=== PATIENT | male | born 1980 | race Caucasian/White ===

== ENCOUNTER 2018-01-29 14:38 | Emergency (ER) | payer MEDICAID ==
[~2018-01-29] VITALS: Ht 182.9 cm; Wt 101.4 kg
[~2018-01-29 14:38] MED LIST: ANAPROX DS550 MG PO; CIPRO500 MG PO; CLEOCIN HCL300 MG PO; PHENYTOIN SODI100 M3; TEGRETOL XR100 MG PO; TEGRETOL200 MG PO
[2018-01-29] MEDS ORDERED: [UNRECOGNIZED DRUG - REMARK] (14:52)
[2018-01-29] MEDS ORDERED: DEPAKOTE ER500 MG PO (14:53)
[2018-01-29 15:02] LABS: URINE BILIRUBIN NEGATIVE (Negative); URINE BLOOD TRACE (Negative); URINE CLARITY CLEAR; URINE COLOR YELLOW; URINE GLUCOSE-RANDOM NEGATIVE (Negative); URINE KETONES NEGATIVE (Negative); URINE LEUKOCYTES-REFLEX NEGATIVE (Negative); URINE NITRITE-REFLEX NEGATIVE (Negative); URINE PROTEIN TRACE (Negative); URINE SPECIFIC GRAVITY >= 1.030 (1.005-1.030); URINE UROBILINOGEN 0.2 E.U./dl (0.2-1.0)
[2018-01-29 15:08] LABS: HEMATOCRIT 44.6 % (42.0-52.0); HEMOGLOBIN 15.2 gm/dL (14.0-18.0); MCH 29.7 pg (26.0-34.0); MCHC 34.1 g/dL (28.0-37.0); MCV 87.3 fL (80.0-100.0); MPV 8.3 fl. (7.2-11.1); NUCLEATED RBCS 0 /100WBC; PLATELET COUNT* 268 thou/uL (150-400); RBC 5.11 mil/uL (4.50-6.00); RDW-CV 13.5 % (10.5-14.5); WBC 14.1 thou/uL (4.0-11.0)
[2018-01-29 15:10] LABS: AMP/METHAMP Negative (Negative); BARBITURATES Negative (Negative); BENZODIAZEPINES Negative (Negative); COCAINE Negative (Negative); METHADONE Negative (Negative); OPIATES Negative (Negative); PCP Negative (Negative); THC POSITIVE (Negative)
[2018-01-29 15:15] LABS: ANION GAP 10 mmol/L (7-16); BUN 15 mg/dL (7-18); CALCIUM 8.7 mg/dL (8.5-10.1); CHLORIDE 104 mmol/L (98-107); CO2 27 mmol/L (21-32); CREATININE 1.2 mg/dL (0.6-1.3); GLUCOSE 90 mg/dL (70-99); POTASSIUM 4.2 mmol/L (3.5-5.1); SODIUM 141 mmol/L (136-145)
[2018-01-29 15:16] LABS: APTT 25.6 Seconds (25.0-31.3)
[2018-01-29 15:29] LABS: ACETAMINOPHEN < 2 ug/mL (10-30); ALCOHOL < 10 mg/dL (<10); SALICYLATE 3.7 mg/dL (2.8-20.0); VALPROIC ACID (DEPAKENE) < 3.0 mcg/mL (50-100)
[2018-01-29 15:34] LABS: ALBUMIN 3.8 g/dL (3.4-5.0); ALKALINE PHOSPHATASE 83 U/L (46-116); NT-PRO BRAIN NAT PEPTIDE 78 pg/mL (<300); SGOT 21 U/L (15-37); SGPT 30 U/L (30-65); TOTAL BILIRUBIN 0.3 mg/dL (<0.1-1.0); TOTAL PROTEIN 7.3 g/dL (6.4-8.2); TROPONIN-I LEVEL <0.06 ng/mL (<0.06)
[2018-01-29 16:52] LABS: ABSOLUTE LYMPHOCYTES 2.1 thou/uL (0.8-5.3); ABSOLUTE MONOCYTES 0.7 thou/uL (0.0-1.2); ABSOLUTE NEUTROPHILS 11.3 thou/uL (1.6-8.1); PLATELET ESTIMATE ADEQUATE
[2018-01-29 17:45] VITALS: BP 115/61
--- NOTE | 2018-01-31 10:23 | EKG ---
[place] [address] ELECTROCARDIOGRAM REPORT Name: LESTER CHÁVEZ Room: [facility]#: [id number] Admission: 01/29/18 Attend Phys: Discharge: 01/29/18 Date of : 84 Report #: [id number] THIS REPORT FOR: //name// [facility] ED Test Date: 2018-01-29 Test Time: 14:57:04 Pat Name: LESTER CHÁVEZ Department: Room: Gender: Gr[employer] 1 Thru 5 Teacher: Genaro KLINE : 1980 Requested By: Tano Manzo Order Number: [id number] MD: Vu Stephens Measurements Intervals Waldo Rate: 118 P: [place]: QRS: 47 QRSD: 74 T: -3 QT: 279 QTc: 391 Interpretive Statements sinus tachycardia Electronically Signed On 01-31-2018 10:22:49 CDT by Vu Stephens [email or web address] <ELECTRONICALLY SIGNED> By: Vu Stephens MD, [facility] 01/31/18 1022 1457 1457 Vu Stephens MD, FAC /EPI
== END 2018-01-29 17:47 | disposition home or self-care (01) ==
LOC: M.ERS 14:38
PROVIDERS: Family Medicine
DX: G40.909 Epilepsy, unspecified, not intractable, without status epilepticus (principal); F17.210 Nicotine dependence, cigarettes, uncomplicated